=== PATIENT | male | born 1985 | race Caucasian/White ===

== ENCOUNTER 2020-03-17 15:34 | Emergency (ER) | payer OTHER ==
[~2020-03-17] VITALS: Ht 172.7 cm; Wt 77.3 kg
[2020-03-17 15:54] VITALS: BP 126/78
== END 2020-03-17 17:46 | disposition home or self-care (01) ==
LOC: EMS 15:34
DX: T81.9XXA Unspecified complication of procedure, initial encounter (principal); X58.XXXA Exposure to other specified factors, initial encounter; Y93.89 Activity, other specified; Y92.89 Other specified places as the place of occurrence of the external cause; Y99.8 Other external cause status
CPT/HCPCS: Z7502